=== PATIENT | female | born 1970 | race African-American/Black ===

== ENCOUNTER 2019-08-11 13:23 | Inpatient (IN) ==
[2019-08-11] MEDS ORDERED: SODIUM CHLORIDE 0.9% 1,000 ML IV STA (13:45)
[2019-08-11 14:21] LABS: Basophils % 0.3 % (0.0-0.8); Eosinophils % 0.4 % (0.00-10.9); Hematocrit 46.3 VOL% (35.7-47.0); Hemoglobin 14.9 GM/DL (12.0-16.0); Immature Granulocytes % 0.7 %; Immature Granulocytes Absolute 0.05 #; Lymphocytes # 0.7 10*3/uL (1.4-4.0); Lymphocytes % 9.1 % (21.3-54.2); Mean Corpuscular HGB Conc 32.2 GM/DL (32-36); Mean Corpuscular Volume 88.5 FL (87-102); Monocytes % 7.6 % (1.7-12.7); Neutrophils % 81.9 % (38.7-73.9); Platelet Count 258 T/CUMM (130-400); Red Blood Count 5.23 MC/CUMM (3.8-5.5); Red Cell Distribution Width 14.9 % (9.3-17.3); White Blood Count 7.4 T/CUMM (4-12)
[2019-08-11 14:38] LABS: INR 0.9
[2019-08-11 14:39] LABS: Albumin 3.8 G/DL (3.4-5.0); Bilirubin,Total 0.5 MG/DL (0.2-1.0); Calcium 8.9 MG/DL (8.5-10.1); Osmolality,Calculated 279.1 MOS/KG (273-304); Total Protein 7.1 G/DL (6.4-8.3)
[2019-08-11] MEDS ORDERED: POTASSIUM CHLORIDE 20 MEQ TABLET PO STA (14:41)
[2019-08-11 15:37] LABS: Apearance,Urine CLEAR (Clear); Bacteria,Urine Occasional /HPF (Few); Bilirubin,Urine Negative (Negative); Blood, Urine Negative (Negative); Glucose,Urine (UA) Negative (Negative); Ketones,Urine Negative (Negative); Nitrite,Urine Negative (Negative); Protein,Urine Negative; RBC,Urine 2 /HPF (0-4); Squamous Epithelial Cell,Urine Occasional /HPF (0-10); Urine Color Colorless (Yellow); Urine Specific Gravity 1.003 (1.001-1.035); Urine Urobilinogen < 2.0 EU/DL (0.2-1.0); WBC,Urine <1 /HPF (0-6)
[2019-08-11] MEDS ORDERED: guaiFENesin/DM ER 600-30 MG TABLET PO PRN (16:13)
[2019-08-11] MEDS ORDERED: LACTULOSE 20 GM/30 ML UDCUP PO PRN (16:13)
[2019-08-11] MEDS ORDERED: ONDANSETRON 4 MG/2 ML VIAL IV PRN (16:13)
[2019-08-11] MEDS ORDERED: ALBUTEROL/IPRATROPIUM 3 ML NEB RESP TX PRN (16:16)
[2019-08-11] MEDS ORDERED: CYCLOBENZAPRINE 10 MG TABLET PO PRN (16:29)
[2019-08-11] MEDS ORDERED: FUROSEMIDE 40 MG/4 ML VIAL IV SCH (16:30)
[2019-08-11 16:45] LABS: Risk Ratio 3.69; Thyroid Stimulating Hormone 1.09 uIU/ml (0.358-3.74); VLDL CHOLESTEROL 27.6 MG/DL
[2019-08-11] MEDS: ACETAMINOPHEN 325 MG TABLET PO PRN (17:18)
[2019-08-11] MEDS ORDERED: SODIUM CHLORIDE 0.9% 100 ML IV ONE (18:00)
[2019-08-11] MEDS: cefTRIAXone 1,000 MG in SYRINGE 1 EACH IV SCH (18:24)
[2019-08-11 18:37] LABS: Barbiturates Screen,Urine Negative (Negative); Benzodiazepines Screen,Urine Negative (Negative); Cannabinoid Screen,Urine Negative (Negative); Opiate Screen,Urine Negative (Negative); Phencyclidine Screen,Urine Negative (Negative)
[2019-08-11] MEDS: FUROSEMIDE 40 MG/4 ML VIAL IV SCH (18:37)
[2019-08-11] MEDS: ALBUTEROL 2.5 MG/3 ML NEB RESP TX SCH (19:16)
[2019-08-11] MEDS: BENZONATATE 100 MG CAPSULE PO SCH (21:45)
[2019-08-11] MEDS: AZITHROMYCIN INJ 500 MG in SODIUM CHLORIDE 0.9% 250 ML IV SCH (21:45)
[2019-08-11] MEDS: ENOXAPARIN 40 MG/0.4 ML SYRINGE SUBCUT SCH (21:45)
[2019-08-12] MEDS: ALBUTEROL 2.5 MG/3 ML NEB RESP TX SCH ×4 (00:15→19:52)
[2019-08-12 05:56] LABS: Basophils % 0.2 % (0.0-0.8); Eosinophils % 0.2 % (0.00-10.9); Hematocrit 39.4 VOL% (35.7-47.0); Hemoglobin 12.5 GM/DL (12.0-16.0); Immature Granulocytes % 0.5 %; Immature Granulocytes Absolute 0.03 #; Lymphocytes # 0.9 10*3/uL (1.4-4.0); Lymphocytes % 15.9 % (21.3-54.2); Mean Corpuscular HGB Conc 31.7 GM/DL (32-36); Mean Corpuscular Volume 88.7 FL (87-102); Mean Platelet Volume 10.6 FL (9.6-12.0); Monocytes % 12.1 % (1.7-12.7); Neutrophils % 71.1 % (38.7-73.9); Platelet Count 227 T/CUMM (130-400); Red Blood Count 4.44 MC/CUMM (3.8-5.5); Red Cell Distribution Width 15.2 % (9.3-17.3); White Blood Count 5.6 T/CUMM (4-12)
[2019-08-12 06:33] LABS: Calcium 8.1 MG/DL (8.5-10.1)
[2019-08-12] MEDS ORDERED: POTASSIUM CHLORIDE 20 MEQ TABLET PO PRN ×2 (07:58→08:17)
[2019-08-12] MEDS: FUROSEMIDE 40 MG/4 ML VIAL IV SCH (10:01)
[2019-08-12] MEDS: POTASSIUM CHLORIDE 20 MEQ TABLET PO PRN ×5 (10:01→23:30)
[2019-08-12] MEDS: BENZONATATE 100 MG CAPSULE PO SCH ×3 (10:01→22:01)
[2019-08-12] MEDS: PANTOPRAZOLE 40 MG TABLET PO SCH (10:01)
[2019-08-12] MEDS: ACETAMINOPHEN 325 MG TABLET PO PRN ×2 (10:06→14:46)
[2019-08-12] MEDS ORDERED: GLUCAGON 1 MG VIAL IM PRN (13:44)
[2019-08-12] MEDS ORDERED: DEXTROSE 50% 25 GM/50 ML VIAL IV PRN (13:44)
[2019-08-12] MEDS ORDERED: DEXTROSE 10% 250 ML BAG IV PRN (13:50)
[2019-08-12] MEDS: INSULIN LISPRO 100 UNIT/ML SUBCUT SCH ×2 (16:01→21:11)
[2019-08-12] MEDS: cefTRIAXone 1,000 MG in SYRINGE 1 EACH IV SCH (17:35)
[2019-08-12 18:07] LABS: Apearance,Urine CLEAR (Clear); Bacteria,Urine Occasional /HPF (Few); Bilirubin,Urine Negative (Negative); Blood, Urine Moderate mg/dL (Negative); Glucose,Urine (UA) Negative (Negative); Ketones,Urine Negative (Negative); Nitrite,Urine Negative (Negative); Protein,Urine Negative; RBC,Urine 1 /HPF (0-4); Urine Color Colorless (Yellow); Urine Specific Gravity 1.002 (1.001-1.035); Urine Urobilinogen < 2.0 EU/DL (0.2-1.0); WBC,Urine 1 /HPF (0-6)
[2019-08-12] MEDS: AZITHROMYCIN INJ 500 MG in SODIUM CHLORIDE 0.9% 250 ML IV SCH (22:01)
[2019-08-12] MEDS: ENOXAPARIN 40 MG/0.4 ML SYRINGE SUBCUT SCH (22:01)
[2019-08-13] MEDS: ALBUTEROL 2.5 MG/3 ML NEB RESP TX SCH ×2 (01:31→07:18)
[2019-08-13 05:09] LABS: Basophils % 0.5 % (0.0-0.8); Eosinophils % 0.5 % (0.00-10.9); Hematocrit 42.2 VOL% (35.7-47.0); Hemoglobin 13.2 GM/DL (12.0-16.0); Immature Granulocytes % 0.5 %; Immature Granulocytes Absolute 0.02 #; Lymphocytes # 1.6 10*3/uL (1.4-4.0); Lymphocytes % 39.8 % (21.3-54.2); Mean Corpuscular HGB Conc 31.3 GM/DL (32-36); Mean Corpuscular Volume 90.4 FL (87-102); Mean Platelet Volume 10.9 FL (9.6-12.0); Monocytes % 14.1 % (1.7-12.7); Neutrophils % 44.6 % (38.7-73.9); Platelet Count 203 T/CUMM (130-400); Red Blood Count 4.67 MC/CUMM (3.8-5.5); Red Cell Distribution Width 15.2 % (9.3-17.3)
[2019-08-13 05:45] LABS: Calcium 8.3 MG/DL (8.5-10.1); Osmolality,Calculated 281.1 MOS/KG (273-304)
[2019-08-13 07:40] VITALS: BP 127/89
[2019-08-13] MEDS ORDERED: metFORMIN 500 MG TABLET PO SCH (08:00)
[2019-08-13] MEDS: INSULIN LISPRO 100 UNIT/ML SUBCUT SCH (08:01)
[2019-08-13] MEDS: PANTOPRAZOLE 40 MG TABLET PO SCH (08:06)
[2019-08-13] MEDS: BENZONATATE 100 MG CAPSULE PO SCH (08:06)
[2019-08-13] MEDS ORDERED: AZITHROMYCIN 250 MG TABLET PO SCH (09:00)
[2019-08-13] MEDS ORDERED: hydroCHLOROthiazide 25 MG TABLET PO SCH (10:00)
[2019-08-13] MEDS ORDERED: amLODIPine 5 MG TABLET PO ONE (10:03)
== END 2019-08-13 10:50 | disposition home or self-care (01) | DRG 195 ==
LOC: EDUNIT# → EDBD → N.ED 13:23 → SUATTDRO 16:13 → N.EDINP 16:13 → N.5E 17:51
PROVIDERS: ADMIT Family Medicine; ATTEND Internal Medicine

== ENCOUNTER 2021-11-10 05:49 | Observation (INO) ==
[2021-11-04 10:54] LABS: Basophils % 0.4 % (0.0-0.8); Eosinophils # 0.1 10*3/uL (0.0-0.87); Eosinophils % 1.7 % (0.00-10.9); Hemoglobin 14.5 GM/DL (12.0-16.0); Immature Granulocytes % 0.7 %; Immature Granulocytes Absolute 0.05 #; Lymphocytes # 3.2 10*3/uL (1.4-4.0); Lymphocytes % 42.2 % (21.3-54.2); Mean Corpuscular HGB Conc 32.2 GM/DL (32-36); Mean Corpuscular Volume 90.9 FL (87-102); Mean Platelet Volume 10.7 FL (9.6-12.0); Monocytes # 0.6 10*3/uL (0.11-0.8); Monocytes % 7.4 % (1.7-12.7); Neutrophils % 47.6 % (38.7-73.9); Platelet Count 159 T/CUMM (130-400); Red Blood Count 4.95 MC/CUMM (3.8-5.5); Red Cell Distribution Width 13.6 % (9.3-17.3); White Blood Count 7.5 T/CUMM (4-12)
[2021-11-04 11:10] LABS: Calcium 8.9 MG/DL (8.5-10.1); Osmolality,Calculated 284.7 MOS/KG (273-304); Potassium 4.3 MMOL/L (3.5-5.1)
[2021-11-10] MEDS ORDERED: ceFAZolin 1,000 MG VIAL ONE (05:57)
[2021-11-10] MEDS ORDERED: SCOPOLAMINE 1.5 MG PATCH TRANSDERM ONE (06:14)
[2021-11-10] MEDS ORDERED: ACETAMINOPHEN 500 MG TABLET PO ONE (06:14)
[2021-11-10] MEDS ORDERED: FAMOTIDINE 20 MG TABLET PO ONE (06:14)
[2021-11-10] MEDS ORDERED: LIDOCAINE 1%/EPI INJ 20 ML VIAL ONE (06:22)
[2021-11-10] MEDS ORDERED: BUPIVACAINE MPF 0.25% 10 ML VIAL ONE (06:22)
[2021-11-10] MEDS ORDERED: TISSUE ADHESIVE 1 EACH APPLICATOR TOP ONE (06:23)
[2021-11-10] MEDS: LACTATED RINGERS 1,000 ML IV SCH ×2 (06:44→08:16)
[2021-11-10] MEDS ORDERED: fentaNYL 100 MCG/2 ML VIAL ONE ×2 (06:49→08:58)
[2021-11-10] MEDS ORDERED: MIDAZOLAM 2 MG/2 ML VIAL ONE (06:49)
[2021-11-10] MEDS ORDERED: ROCURONIUM 50 MG/5 ML VIAL IV ONE (06:49)
[2021-11-10] MEDS ORDERED: propofoL 200 MG/20 ML VIAL IV ONE (06:50)
[2021-11-10] MEDS ORDERED: LIDOCAINE 2% 5 ML VIAL ONE (06:50)
[2021-11-10] MEDS ORDERED: SUCCINYLCHOLINE 200 MG/10 ML VIAL ONE (06:51)
[2021-11-10] MEDS ORDERED: ePHEDrine 50 MG/ML VIAL ONE (07:30)
[2021-11-10] MEDS ORDERED: PHENYLEPHRINE 1 MG/10 ML SYRINGE IV ONE ×2 (07:49→10:06)
[2021-11-10] MEDS ORDERED: SEVOFLURANE 1 UNIT/15 MINUTE INH ONE ×11 (07:49→10:11)
[2021-11-10] MEDS ORDERED: GLYCOPYRROLATE 0.4 MG/2 ML VIAL ONE (09:11)
[2021-11-10] MEDS ORDERED: NEOSTIGMINE 10 MG/10 ML VIAL ONE (09:11)
[2021-11-10] MEDS ORDERED: ONDANSETRON 4 MG/2 ML VIAL ONE (09:12)
[2021-11-10] MEDS ORDERED: ALBUTEROL/IPRATROPIUM 3 ML NEB RESP TX PRN (10:39)
[2021-11-10] MEDS ORDERED: ONDANSETRON 4 MG/2 ML VIAL IV PRN (10:39)
[2021-11-10] MEDS ORDERED: ACETAMINOPHEN 325 MG TABLET PO PRN (10:39)
[2021-11-10] MEDS ORDERED: HYDROmorphone 1 MG/1 ML SYRINGE IV PRN ×2 (10:39)
[2021-11-10] MEDS: KETOROLAC 15 MG/1 ML VIAL IV PRN (15:53)
[2021-11-10] MEDS: ceFAZolin 2,000 MG/50 ML DUPLEX IV SCH (16:50)
[2021-11-10] MEDS ORDERED: ceFAZolin 2,000 MG/50 ML DUPLEX IV SCH (17:00)
[2021-11-11] MEDS: KETOROLAC 15 MG/1 ML VIAL IV PRN (00:43)
[2021-11-11] MEDS: ceFAZolin 2,000 MG/50 ML DUPLEX IV SCH (00:43)
[2021-11-11 05:17] LABS: Basophils % 0.2 % (0.0-0.8); Eosinophils # 0.1 10*3/uL (0.0-0.87); Eosinophils % 1.3 % (0.00-10.9); Hematocrit 37.4 VOL% (35.7-47.0); Hemoglobin 11.9 GM/DL (12.0-16.0); Immature Granulocytes % 0.4 %; Immature Granulocytes Absolute 0.04 #; Lymphocytes # 2.5 10*3/uL (1.4-4.0); Lymphocytes % 27.5 % (21.3-54.2); Mean Corpuscular HGB Conc 31.8 GM/DL (32-36); Mean Corpuscular Volume 92.8 FL (87-102); Mean Platelet Volume 10.8 FL (9.6-12.0); Monocytes # 0.9 10*3/uL (0.11-0.8); Monocytes % 10.1 % (1.7-12.7); Neutrophils % 60.5 % (38.7-73.9); Platelet Count 212 T/CUMM (130-400); Red Blood Count 4.03 MC/CUMM (3.8-5.5); Red Cell Distribution Width 13.8 % (9.3-17.3)
[2021-11-11 05:34] LABS: Calcium 8.2 MG/DL (8.5-10.1); Osmolality,Calculated 285.8 MOS/KG (273-304); Potassium 3.5 MMOL/L (3.5-5.1)
[2021-11-11] MEDS ORDERED: PANTOPRAZOLE 40 MG TABLET PO SCH (06:30)
[2021-11-11] MEDS ORDERED: SIMETHICONE CHEW 125 MG TABLET PO PRN (10:57)
[2021-11-11 11:48] VITALS: BP 130/84
== END 2021-11-11 13:35 | disposition home or self-care (01) ==
LOC: N.OR 05:49 → N.SDSINP 05:49 → N.5E 14:15
PROVIDERS: ADMIT Surgery; ATTEND Surgery